=== PATIENT | male | born 1955 | race Caucasian/White ===

== ENCOUNTER → 2017-09-06 | Outpatient (CLI) | payer BC ==
[~2017-09-06] MED LIST: DOBUTamine DRIP for NUC MED 500 MG in DEXTROSE/WATER 1 250ML.BAG IV ONE
--- NOTE | 2017-09-06 11:22 | ECHOS ---
Referral Reason:R94.31 Abnormal EKG MEASUREMENTS -------- HEIGHT: 170.2 cm WEIGHT: 106.6 kg BP: 132/78 WallScoring: string WallScoring: string WallScoring: string WallScoring: string FINDINGS -------- The patient received intravenous dobutamine beginning at 10 mcg/kg/min, increasing to 20 mcg/kg/min and 30 mcg/kg/min in 3 minute stages plus 0 mg atropine. Max Heart Rate: 141 % of Max Predicted Heart Rate: 88% Rest Heart Rate: 71 Rest BP: 132/78 Max BP: 202/104 Mets Achieved: N/A The test was stopped because the target heart rate was achieved. Sinus rhythm with extra systolic beats. In response to stress, the ECG showed no ST-T wave changes . In response to stress, the ECG showed no ST-T wave changes . There were normal blood pressure and heart rate responses to stress. LV size, wall thickness and systolic function are normal, with an EF of 60%. At recovery dobutamine stress there was appropriate augmentation of systolic function of all segments with decrease in cavity size. CONCLUSIONS -------- 1. The patient received intravenous dobutamine beginning at 10 mcg/kg/min, increasing to 20 mcg/kg/min and 30 mcg/kg/min in 3 minute stages plus 0 mg atropine. 2. In response to stress, the ECG showed no ST-T wave changes. 3. No 2D echocardiographic evidence of inducible ischemia to achieved workload. [facility] ATTENDANT: BRITTNEY Davidson
== END | disposition home or self-care (01) ==
LOC: RADNMMAIN 09:43
PROVIDERS: ATTEND Family Medicine
DX: R94.31 Abnormal electrocardiogram [ECG] [EKG] (principal)
CPT/HCPCS: 93350; 93017; J1250; Q9957

== ENCOUNTER 2019-02-11 10:30 | Emergency (ER) | payer OTHER ==
[2019-02-11 10:44] VITALS: TEMP 99
[2019-02-11] MEDS ORDERED: SODIUM CHLORIDE 0.9% 1,000 ML IV STA (10:49)
[2019-02-11] MEDS ORDERED: MORPHINE SULFATE 4 MG/ML SYRINGE IVP STA (10:50)
--- NOTE | 2019-02-11 10:54 | ED ---
General Adult HPI - General Chief complaint: Arrhythmia/Palpitations Stated complaint: chest pain, palpations Time Seen by Provider: 02/11/19 10:37 Source: patient Mode of arrival: ambulatory Limitations: no limitations - History of Present Illness Initial comments: Patient is a 63-year-old male presenting for palpitations and abdominal pain. The patient states that for many years, he has had intermittent chronic lower abdominal pain that gets worse whenever he picks things up or exerts himself. However, since last night, he has been having worsening pain and physical crampy sensation has not been constant. He also states that he has had diarrhea all night but denies any vomiting or diarrhea or fevers or chills. He also denies any urinary symptoms. He states that he decided to go to his doctor's office because he was having some palpitations and felt like his heart was skipping but he denies any gabbie shortness of breath or chest pain. - Related Data Home Medications Medication Instructions Recorded Confirmed Allopurinol [Zyloprim] 100 mg PO DAILY 02/11/19 02/11/19 Diazepam 10 mg PO Q4H 02/11/19 02/11/19 Levothyroxine Sodium [Synthroid] 100 mcg PO DAILY 02/11/19 02/11/19 Meloxicam [Mobic] 7.5 mg PO DAILY 02/11/19 02/11/19 Olmesartan/Hydrochlorothiazide 1 tab PO DAILY 02/11/19 02/11/19 [Benicar Hct 40-12.5 mg Tablet] oxyCODONE-APAP 10-325MG [Percocet 1 tab PO QID 02/11/19 02/11/19 10-325 mg] Previous Rx's Medication Instructions Recorded Ciprofloxacin HCl [Cipro] 500 mg PO Q12HR 7 Days #14 tablet 02/11/19 HYDROcodone/APAP 5-325MG [Virgil 1 tab PO Q6HR PRN 3 Days #12 tab 02/11/19 5-325] metroNIDAZOLE [Flagyl] 500 mg PO TID 7 Days #21 tab 02/11/19 Allergies Allergy/AdvReac Type Severity Reaction Status Date / Time No Known Allergies Allergy Verified 02/11/19 10:52 Review of Systems ROS Statement: Those systems with pertinent positive or pertinent negative responses have been documented in the HPI. Constitutional: Negative for chills, fatigue and fever. HENT: Negative for congestion. Respiratory: Negative for chest tightness, shortness of breath and wheezing. Negative for cough Cardiovascular: Negative for chest pain and positive for palpitations. Gastrointestinal: Positive for abdominal pain. Negative for abdominal distention, nausea and vomiting. Positive for diarrhea Genitourinary: Negative for dysuria. Musculoskeletal: Negative for back pain, neck pain and neck stiffness. Skin: Negative for color change. Neurological: Negative for dizziness, speech difficulty, weakness and light- headedness. Psychiatric/Behavioral: Negative for agitation and confusion. Negative for an xiety ROS Other: All systems not noted in ROS Statement are negative. Past Medical History Past Medical History: Hypertension, Thyroid Disorder Additional Past Medical History / Comment(s): Gout History of Any Multi-Drug Resistant Organisms: None Reported Past Surgical History: Orthopedic Surgery Additional Past Surgical History / Comment(s): left shoulder, right knee Past Psychological History: No Psychological Hx Reported Smoking Status: Former smoker Past Alcohol Use History: None Reported Past Drug Use History: Marijuana General Exam - General Exam Comments Initial Comments: Constitutional: Pt appears well-developed and well-nourished. No distress. Head: Normocephalic and atraumatic. Eyes: EOM are normal. Neck: Normal range of motion. Neck supple. Cardiovascular: Normal rate, regular rhythm, S1 normal, S2 normal and normal heart sounds. Exam reveals no gallop and no friction rub. No murmur heard. Pulmonary/Chest: Effort normal and breath sounds normal. No tachypnea and no bradypnea. No respiratory distress. No wheezes or rales noted. Abdominal: Soft. Bowel sounds are normal. Pt exhibits no shifting dullness, no distension, no pulsatile liver, no fluid wave, no abdominal bruit and no ascites. There is no rigidity, no rebound, no guarding, no tenderness at McBurn ey's point and negative Hopson's sign. There is mild tenderness on the suprapubic region as well as left lower quadrant Musculoskeletal: Normal range of motion. Neurological: Pt is alert and oriented to person, place, and time. No cranial nerve deficit. Skin: Skin is warm and dry. No rash noted. Pt is not diaphoretic. No erythema. No pallor. Psychiatric: Pt has a normal mood and affect. Pt behavior is normal. Thought content normal. Limitations: no limitations Course Vital Signs 02/11/19 02/11/19 02/11/19 10:41 11:00 12:00 Temperature 99.0 F Pulse Rate 82 81 78 Respiratory 20 16 20 Rate Blood Pressure 133/83 111/84 120/83 O2 Sat by Pulse 96 98 100 Oximetry 02/11/19 13:13 Temperature Pulse Rate 86 Respiratory 14 Rate Blood Pressure 135/80 O2 Sat by Pulse 97 Oximetry EKG Findings - EKG Comments: EKG Findings:: EKG shows normal sinus rhythm with a rate of 84 bpm, W[place] interval 160, QRS 88, QTC 389. There are no significant ST depressions or elevations. Medical Decision Making - Medical Decision Making Laboratory studies showed that there was mild leukocytosis of 15.1 with no significant joint derangements. There is also from a cardiac standpoint no evidence of elevated troponin and EKG had no significant findings. CT of the a bdomen showed non-complicated diverticulitis of the sigmoid colon. It is the patient's pain was well controlled and vital signs were within normal limits, it was advised that outpatient treatment of the diverticulitis would be reasonable. Patient was agreeable as well and noted to be resting very comfortably in no acute distress at the time of disposition.Explained all labs and diagnostic test results and that we will discharge the patient home and patient is to follow up with PCP in 1-2 days and return to the ED if symptoms worsen. Pt is agreeable to plan. - Lab Data Result diagrams: 02/11/19 10:57 02/11/19 10:57 Lab Results 02/11/19 02/11/19 02/11/19 Range/Units 10:57 10:57 10:57 WBC 15.1 H (3.8-10.6) k/uL RBC 4.85 (4.30-5.90) m/uL Hgb 15.1 (13.0-17.5) gm/dL Hct 45.6 (39.0-53.0) % MCV 94.0 (80.0-100.0) fL MCH 31.1 (25.0-35.0) pg MCHC 33.1 (31.0-37.0) g/dL RDW 13.1 (11.5-15.5) % Plt Count 232 (150-450) k/uL Neutrophils % 86 % Lymphocytes % 7 % Monocytes % 5 % Eosinophils % 2 % Basophils % 0 % Neutrophils # 13.0 H (1.3-7.7) k/uL Lymphocytes # 1.0 (1.0-4.8) k/uL Monocytes # 0.7 (0-1.0) k/uL Eosinophils # 0.3 (0-0.7) k/uL Basophils # 0.0 (0-0.2) k/uL PT 9.8 (9.0-12.0) sec INR 0.9 (<1.2) APTT 23.5 (22.0-30.0) sec Sodium 140 (137-145) mmol/L Potassium 4.1 (3.5-5.1) mmol/L Chloride 103 (98-107) mmol/L Carbon Dioxide 28 (22-30) mmol/L Anion Gap 9 mmol/L BUN 17 (9-20) mg/dL Creatinine 1.13 (0.66-1.25) mg/dL Est GFR (CKD-EPI)AfAm 81 (>60 ml/min/1.73 sqM) Est GFR (CKD-EPI)NonAf 70 (>60 ml/min/1.73 sqM) Glucose 114 H (74-99) mg/dL Calcium 9.9 (8.4-10.2) mg/dL Magnesium 1.8 (1.6-2.3) mg/dL Total Bilirubin 1.1 (0.2-1.3) mg/dL AST 32 (17-59) U/L ALT 58 (21-72) U/L Alkaline Phosphatase 68 (38-126) U/L Troponin I (0.000-0.034) ng/mL Total Protein 7.6 (6.3-8.2) g/dL Albumin 4.7 (3.5-5.0) g/dL TSH 3.950 (0.465-4.680) mIU/L Urine Color Urine Appearance (Clear) Urine pH (5.0-8.0) Ur Specific [place] (1.001-1.035) Urine Protein (Negative) Urine Glucose (UA) (Negative) Urine Ketones (Negative) Urine Blood (Negative) Urine Nitrite (Negative) Urine Bilirubin (Negative) Urine Urobilinogen (<2.0) mg/dL Ur Leukocyte Esterase (Negative) Urine RBC (0-5) /hpf Urine WBC (0-5) /hpf Urine Bacteria (None) /hpf Urine Mucus (None) /hpf 02/11/19 02/11/19 Range/Units 10:57 12:26 WBC (3.8-10.6) k/uL RBC (4.30-5.90) m/uL Hgb (13.0-17.5) gm/dL Hct (39.0-53.0) % MCV (80.0-100.0) fL MCH (25.0-35.0) pg MCHC (31.0-37.0) g/dL RDW (11.5-15.5) % Plt Count (150-450) k/uL Neutrophils % % Lymphocytes % % Monocytes % % Eosinophils % % Basophils % % Neutrophils # (1.3-7.7) k/uL Lymphocytes # (1.0-4.8) k/uL Monocytes # (0-1.0) k/uL Eosinophils # (0-0.7) k/uL Basophils # (0-0.2) k/uL PT (9.0-12.0) sec INR (<1.2) APTT (22.0-30.0) sec Sodium (137-145) mmol/L Potassium (3.5-5.1) mmol/L Chloride (98-107) mmol/L Carbon Dioxide (22-30) mmol/L Anion Gap mmol/L BUN (9-20) mg/dL Creatinine (0.66-1.25) mg/dL Est GFR (CKD-EPI)AfAm (>60 ml/min/1.73 sqM) Est GFR (CKD-EPI)NonAf (>60 ml/min/1.73 sqM) Glucose (74-99) mg/dL Calcium (8.4-10.2) mg/dL Magnesium (1.6-2.3) mg/dL Total Bilirubin (0.2-1.3) mg/dL AST (17-59) U/L ALT (21-72) U/L Alkaline Phosphatase (38-126) U/L Troponin I <0.012 (0.000-0.034) ng/mL Total Protein (6.3-8.2) g/dL Albumin (3.5-5.0) g/dL TSH (0.465-4.680) mIU/L Urine Color Yellow Urine Appearance Clear (Clear) Urine pH 5.0 (5.0-8.0) Ur Specific [place] 1.049 H (1.001-1.035) Urine Protein Negative (Negative) Urine Glucose (UA) Negative (Negative) Urine Ketones Negative (Negative) Urine Blood Trace H (Negative) Urine Nitrite Negative (Negative) Urine Bilirubin Negative (Negative) Urine Urobilinogen <2.0 (<2.0) mg/dL Ur Leukocyte Esterase Negative (Negative) Urine RBC 1 (0-5) /hpf Urine WBC <1 (0-5) /hpf Urine Bacteria Rare H (None) /hpf Urine Mucus Rare H (None) /hpf Disposition Clinical Impression: Palpitations, Diverticulitis Disposition: HOME SELF-CARE Condition: Good Instructions (If sedation given, give patient instructions): Diverticulitis (ED) Prescriptions: Ciprofloxacin HCl [Cipro] 500 mg PO Q12HR 7 Days #14 tablet metroNIDAZOLE [Flagyl] 500 mg PO TID 7 Days #21 tab HYDROcodone/APAP 5-325MG [Virgil 5-325] 1 tab PO Q6HR PRN 3 Days #12 tab PRN Reason: Pain Is patient prescribed a controlled substance at d/c from ED?: Yes When asked, does pt state using other controlled substances?: Yes If prescribed controlled substance>3 days was MAPS reviewed?: Prescribed <3 Days If opioid is for acute pain is fill amount 7 days or less?: Yes If Rx opioid, was Start Talking consent form obtained?: Yes Referrals: Mart Harkins MD [Primary Care Provider] - 1-2 days Kong Hopson MD [STAFF PHYSICIAN] - 1-2 days Time of Disposition: 13:01
[2019-02-11 11:12] LABS: Basophils % (A) 0 %; Eosinophils # (A) 0.3 k/uL (0-0.7); Eosinophils % (A) 2 %; HCT 45.6 % (39.0-53.0); HGB 15.1 gm/dL (13.0-17.5); Lymphocytes % (A) 7 %; MCH 31.1 pg (25.0-35.0); MCHC 33.1 g/dL (31.0-37.0); Mean Platelet Volume 7.5; Monocytes # (A) 0.7 k/uL (0-1.0); Monocytes % (A) 5 %; Neutrophils % (A) 86 %; Platelet Count 232 k/uL (150-450); RBC 4.85 m/uL (4.30-5.90); RDW 13.1 % (11.5-15.5); WBC 15.1 k/uL (3.8-10.6)
[2019-02-11 11:18] LABS: Albumin 4.7 g/dL (3.5-5.0); Calcium 9.9 mg/dL (8.4-10.2); Magnesium 1.8 mg/dL (1.6-2.3); Potassium 4.1 mmol/L (3.5-5.1); Total Bilirubin 1.1 mg/dL (0.2-1.3); Total Protein 7.6 g/dL (6.3-8.2)
[2019-02-11 11:25] LABS: INR 0.9 (<1.2); Partial Thromboplastin Time 23.5 sec (22.0-30.0); Prothrombin Time 9.8 sec (9.0-12.0)
--- NOTE | 2019-02-11 11:47 | CT ---
EXAMINATION TYPE: CT abdomen pelvis w con DATE OF EXAM: 02/11/2019 REFERENCE: NONE HISTORY: Pain CT DLP: 1488.40 mGy Automated exposure control for dose reduction was used. TECHNIQUE: Helical acquisition through the abdomen and pelvis was obtained without oral contrast and following intravenous administration of 100 mL of Isovue 300. The data was reformatted in axial, isha nal and sagittal projections. FINDINGS: There is minimal dependent atelectasis at the lung bases. There is no pleural or pericardi al fluid. The heart is not enlarged. Within the abdomen, there is elevation of the right hemidiaphragm. The liver is upper limits of terrie l in size. The spleen and gallbladder are normal. Both adrenal glands are normal. There is a simple appearing, 2.3 cm cyst in the lower pole of the left kidney. There is a smaller, 8 mm low attenuating lesion in the anterior aspect of the mid polar region of the right kidney. The pancreas is unremarkable. There is no significant retroperitoneal, iliac or inguinal adenopathy. There is indirect inguinal hernia on the left containing fat only. The bladder is unremarkable. There is mild calcification of the prostate gland. There is thickening throughout the sigmoid colon. There are scattered diverticula. There is moderate inflammatory change adjacent to the proximal sigmoid compatible with diverticulitis. There is no defi nite evidence of perforation. There is no evidence of pericolic abscess. The remainder the colon is n ormal. The appendix is unremarkable. Small bowel loops are of normal caliber. There is no free fluid and no free air identified. There is degenerative disc disease, facet arthropathy and hypertrophic spondylosis within the spine.. IMPRESSION: 1. ACUTE DIVERTICULITIS INVOLVING THE PROXIMAL SIGMOID COLON WITHOUT EVIDENCE OF ABSCESS FORMATION OR PERFORATION. 2. RENAL CYSTIC DISEASE. 3. INDIRECT INGUINAL HERNIA ON THE LEFT CONTAINING FAT ONLY. 4. DEGENERATIVE CHANGES WITHIN THE SPINE.
--- NOTE | 2019-02-11 11:49 | XR ---
EXAMINATION TYPE: XR chest 2V DATE OF EXAM: 02/11/2019 HISTORY: dysrhythmia. REFERENCE: NONE. FINDINGS: There is a left shoulder arthroplasty in place. The heart is not enlarged. Lungs are clear. Pleural spaces are clear. IMPRESSION: NO ACTIVE INTRATHORACIC DISEASE.
[2019-02-11 12:35] LABS: Appearance,Urine Clear (Clear); Bacteria,Urine Rare /hpf; Bilirubin,Urine Negative (Negative); Blood,Urine Trace (Negative); Color,Urine Yellow; Glucose,Urine (UA) Negative (Negative); Ketones,Urine Negative (Negative); Leukocyte Esterase,Urine Negative (Negative); Mucus,Urine Rare /hpf; Nitrite,Urine Negative (Negative); Protein,Urine Negative (Negative); RBC,Urine 1 /hpf (0-5); Urobilinogen,Urine <2.0 mg/dL (<2.0); WBC,Urine <1 /hpf (0-5)
[2019-02-11 12:36] LABS: Specific Gravity,Urine 1.049 (1.001-1.035)
[2019-02-11 13:21] VITALS: BP 135/80; PULSE 86; RESP 14
== END 2019-02-11 13:21 | disposition home or self-care (01) ==
LOC: EC 10:30
DX: R00.2 Palpitations (principal); K57.32 Diverticulitis of large intestine without perforation or abscess without bleeding; D72.829 Elevated white blood cell count, unspecified; R07.9 Chest pain, unspecified; I10 Essential (primary) hypertension; E07.9 Disorder of thyroid, unspecified; M10.9 Gout, unspecified; Z87.891 Personal history of nicotine dependence; Z79.890 Hormone replacement therapy; Z79.1 Long term (current) use of non-steroidal anti-inflammatories (NSAID); Z79.891 Long term (current) use of opiate analgesic; Z79.899 Other long term (current) drug therapy
CPT/HCPCS: 99285; 96374; 96361; 36415; 93005; 80053; 84443; 83735; 84484; 85025; 85610; 85730; 81001; 71046; 74177; J2270; Q9967

== ENCOUNTER → 2019-05-31 | Outpatient (CLI) | payer OTHER ==
--- NOTE | 2019-05-31 15:40 | US ---
EXAMINATION TYPE: US thyroid st tissue head/neck DATE OF EXAM: 05/31/2019 COMPARISON: NONE CLINICAL HISTORY: E04.9 Goiter; R59.0 Cervical lymphadenopathy. Dysphagia GLAND SIZE: Right Lobe: 5.2 x 2.8 x 2.9 cm Overall Parenchyma: heterogenous Left Lobe: 5.0 x 2.6 x 2.3 cm Overall Parenchyma: heterogeneous Isthmus Thickness: 1.3 cm NODULES RIGHT: # of nodules measured on right: 0 LEFT: # of nodules measured on left: 0 ISTHMUS: # of nodules measured in the isthmus: 0 Bilateral neck scanned, multiple hypoechoic area's seen bilateral neck with largest on right measurin g 2.2 x 0.4 x 1.4cm, largest on left measuring 1.4 x 0.5 x 0.9cm, and largest midline measuring 1.2 x 0.8 x 1.0cm. This is seen on image 44/50 and has multiple foci of internal vascular flow, atypical a ppearing for a lymph node. Biopsy could be considered. Mildly enlarged heterogeneous thyroid without any definite nodules seen at this time. IMPRESSION: 1. Heterogenous enlarged thyroid gland without definitive nodule. Consider thyroiditis and correlatio n with serum laboratory values is recommended. 2. Multiple nonenlarged lymph nodes are seen however there is an abnormal-appearing lymph node superi or to the thyroid isthmus for which biopsy could be considered.
== END | disposition home or self-care (01) ==
LOC: RADUSWWP 14:54
PROVIDERS: ATTEND Family Medicine
DX: E04.9 Nontoxic goiter, unspecified (principal)
CPT/HCPCS: 76536

== ENCOUNTER → 2021-03-26 | Outpatient (CLI) | payer MEDICARE ==
--- NOTE | 2021-03-27 08:26 | US ---
EXAMINATION TYPE: US kidneys/renal and bladder DATE OF EXAM: 03/26/2021 COMPARISON: CT CLINICAL HISTORY: N18.9 chronic kidney disease. Abnormal labs EXAM MEASUREMENTS: Right Kidney: 10.8 x 5.3 x 5.1 cm Left Kidney: 9.7 x 5.5 x 4.8 cm Right Kidney: No evidence of hydronephrosis. Calcifications scattered throughout, largest= 6mm in siz e at the lower pole Left Kidney: No evidence of hydronephrosis,. 5 mm calculus at the midpole. Mid/ cyst lower pole= 2.6 x 2.8 x 2.8 cm Bladder: wnl Bilateral Jets seen: Yes No evidence of hydronephrosis. IMPRESSION: 1. Probable bilateral Renal calculi. No evidence of hydronephrosis. 2. 2.8 cm left mid to lower pole renal cyst.
== END | disposition home or self-care (01) ==
LOC: RADUSWWP 16:13
PROVIDERS: ATTEND Family Medicine
DX: N28.1 Cyst of kidney, acquired (principal); N18.9 Chronic kidney disease, unspecified
CPT/HCPCS: 76770